=== PATIENT | female | born 1960 | race Caucasian/White ===

== ENCOUNTER 2017-02-26 15:27 | Inpatient (IN) | payer OTHER ==
[~2017-02-26] VITALS: Ht 152.4 cm; Wt 82.3 kg
[~2017-02-26 15:27] MED LIST: BENTYL10 MG PO; COUMADIN1 MG PO; DITROPAN XL10 MG PO; FENOFIBRATE200 M1; LEXAPRO10 MG PO; LIPITOR80 MG PO; LOFIBRA,TRIGLI160 MG PO; PERCOCET 5/31 TABLET PO; PRILOSEC20 MG PO; PRINIVIL20 MG PO; RISPERDAL0.5 MG PO; RISPERDAL1 MG PO; ZETIA10 MG PO
[2017-02-26 17:03] LABS: CHLORIDE 96 mEq/L (99-109); EOSINOPHIL (%) 0.4 % (0-5); EOSINOPHIL COUNT 0.1 K/uL (0-0.3); HEMATOCRIT 31.6 % (36.0-46.0); IMMATURE GRANULOCYTE (%) 0.6 % (0.0-0.7); IMMATURE GRANULOCYTE COUNT 0.1 K/uL; INSTRUMENT ABS NEUTROPHIL CT 11.7 K/uL; LYMPHOCYTE COUNT 1.3 K/uL (1.0-2.8); MCH 21.5 PG (29.0-34.0); MCV 69.5 FL (83-99); MONOCYTE (%) 7.4 % (3-12); MONOCYTE COUNT 1.1 K/uL (0-0.8); NEUTROPHIL (%) 82.2 % (45-76); NEUTROPHIL COUNT 11.7 K/uL (1.8-6.4); PLATELET COUNT 471 K/uL (156-360); POTASSIUM 4.4 mEq/L (3.7-5.4); RBC DIS.WIDTH-CV 14.7 % (11.8-14.6); RBC DIS.WIDTH-SD 36.8 % (39-53); RED BLOOD COUNT 4.55 M/uL (3.80-5.20); SODIUM 130 mEq/L (136-147); WHITE BLOOD COUNT 14.2 K/uL (4.1-10.2)
[2017-02-26 17:04] LABS: GLUCOSE 111 mg/dL (70-99)
[2017-02-26 17:06] LABS: ANION GAP 12 MEQ/L (2-14)
[2017-02-26 17:08] LABS: GFR ESTIMATE (CALCULATED) > 59 mL/min/
[2017-02-26 17:09] LABS: UREA NITROGEN (BUN) 14 mg/dL (9-23)
[2017-02-26 17:16] LABS: TROP-I INTERPRETATION NEGATIVE; TROPONIN-I 0.09 ng/mL (0.0-0.30)
[2017-02-26] MEDS ORDERED: LEXAPRO20 MG PO (23:26)
[2017-02-26] MEDS ORDERED: ZOCOR10 MG PO (23:28)
[2017-02-26] MEDS ORDERED: MELATONIN5 M1 PO (23:28)
[2017-02-27] VITALS (17 sets, daily range): BP systolic 68–111; BP diastolic 33–74
[2017-02-27 02:30] LABS: D-DIMER ELISA 1.82 mg/L FEU (< 0.57)
[2017-02-27 03:00] LABS: TROP-I INTERPRETATION POSITIVE; TROPONIN-I 1.27 ng/mL (0.0-0.30)
[2017-02-27 04:21] LABS: ADD MIUA? NO; BILIRUBIN NEGATIVE; BLOOD NEGATIVE; COLOR YELLOW ((YELLOW)); GLUCOSE (STRIP) NEGATIVE; KETONES NEGATIVE; LEUKOCYTES NEGATIVE; NITRITE NEGATIVE; PROTEIN (STRIP) NEGATIVE; UCUL ADDED? NO; UROBILINOGEN 0.2 MG/DL (0.2-1.0)
[2017-02-27 04:29] LABS: METH RESISTANT S AUREUS PCR NEGATIVE (NEGATIVE)
[2017-02-27 04:30] LABS: PROBE CHECK PASS; SPECIMEN PROCESSING CONTROL PASS
[2017-02-27 07:53] LABS: HEMATOCRIT 27.4 % (36.0-46.0); MCH 21.4 PG (29.0-34.0); MCHC 29.9 G/DL (30.0-36.0); MCV 71.4 FL (83-99); RBC DIS.WIDTH-SD 38.5 % (39-53); RED BLOOD COUNT 3.84 M/uL (3.80-5.20); WHITE BLOOD COUNT 9.8 K/uL (4.1-10.2)
[2017-02-27 08:01] LABS: CHLORIDE 105 mEq/L (99-109); POTASSIUM 4.5 mEq/L (3.7-5.4); SODIUM 135 mEq/L (136-147)
[2017-02-27 08:03] LABS: GLUCOSE 109 mg/dL (70-99)
[2017-02-27 08:04] LABS: ANION GAP 5 MEQ/L (2-14)
[2017-02-27 08:06] LABS: TROP-I INTERPRETATION POSITIVE; TROPONIN-I 0.96 ng/mL (0.0-0.30)
[2017-02-27 08:07] LABS: GFR ESTIMATE (CALCULATED) > 59 mL/min/
[2017-02-27 08:08] LABS: UREA NITROGEN (BUN) 9 mg/dL (9-23)
[2017-02-27 09:02] LABS: MEAN PLAT.VOLUME 8.8 uM^3 (9.5-12.4); PLAT.SUFFICIENCY INCREASED
[2017-02-27 09:06] LABS: PLATELET COUNT 328 K/uL (156-360)
[2017-02-27 14:05] LABS: HEMATOCRIT 28.3 % (36.0-46.0); MCV 72.9 FL (83-99)
[2017-02-28] VITALS (16 sets, daily range): BP systolic 87–134; BP diastolic 42–65
[2017-02-28 06:09] LABS: ALKALINE PHOSPHATASE 93 IU/L (3-129); ANION GAP 8 MEQ/L (2-14); CHLORIDE 105 MEQ/L (99-109); GFR ESTIMATE (CALCULATED) > 59 mL/min/; GLUCOSE 83 mg/dL (70-99); POTASSIUM 4.3 MEQ/L (3.7-5.4); SAMPLE HEMOLYSIS CHECK 0; SAMPLE ICTERIC CHECK 0; SAMPLE LIPEMIA CHECK 0; SODIUM 137 MEQ/L (136-147); TOTAL BILIRUBIN 0.4 MG/DL (0.0-1.0); UREA NITROGEN (BUN) 8 mg/dL (9-23)
[2017-02-28 06:11] LABS: HEMATOCRIT 31.6 % (36.0-46.0); MCH 21.5 PG (29.0-34.0); MCHC 29.1 G/DL (30.0-36.0); MCV 73.8 FL (83-99); RBC DIS.WIDTH-CV 15.1 % (11.8-14.6); RBC DIS.WIDTH-SD 40.1 % (39-53); RED BLOOD COUNT 4.28 M/uL (3.80-5.20); WHITE BLOOD COUNT 8.5 K/uL (4.1-10.2)
[2017-02-28 06:24] LABS: PLAT.SUFFICIENCY ADEQUATE; PLATELET COUNT ND K/uL (156-360)
[2017-02-28 06:25] LABS: MEAN PLAT.VOLUME ND uM^3 (9.5-12.4)
[2017-02-28 07:13] LABS: PLATELET CLUMPS PRESENT
[2017-03-01] VITALS (17 sets, daily range): BP systolic 86–122; BP diastolic 44–72
[2017-03-01 06:26] LABS: HEMATOCRIT 23.2 % (36.0-46.0); MCH 21.8 PG (29.0-34.0); MCHC 30.2 G/DL (30.0-36.0); MCV 72.3 FL (83-99); MEAN PLAT.VOLUME 9.2 uM^3 (9.5-12.4); PLATELET COUNT 267 K/uL (156-360); RBC DIS.WIDTH-SD 39.9 % (39-53); RED BLOOD COUNT 3.21 M/uL (3.80-5.20)
[2017-03-01 06:46] LABS: ANION GAP 5 MEQ/L (2-14); CHLORIDE 103 MEQ/L (99-109); POTASSIUM 3.9 MEQ/L (3.7-5.4); SAMPLE HEMOLYSIS CHECK 0; SAMPLE ICTERIC CHECK 0; SAMPLE LIPEMIA CHECK 0; SODIUM 136 MEQ/L (136-147)
[2017-03-01 06:52] LABS: GFR ESTIMATE (CALCULATED) > 59 mL/min/; GLUCOSE 97 mg/dL (70-99); UREA NITROGEN (BUN) 11 mg/dL (9-23)
[2017-03-01 09:48] LABS: FERRITIN 19 NG/ML (10-291)
[2017-03-01 10:37] LABS: IRON < 10.0 MCG/DL (35-150)
[2017-03-02] VITALS (9 sets, daily range): BP systolic 91–120; BP diastolic 50–57
[2017-03-02 06:15] LABS: ANION GAP 6 MEQ/L (2-14); CHLORIDE 104 MEQ/L (99-109); GFR ESTIMATE (CALCULATED) > 59 mL/min/; GLUCOSE 96 mg/dL (70-99); POTASSIUM 3.8 MEQ/L (3.7-5.4); SAMPLE HEMOLYSIS CHECK 0; SAMPLE ICTERIC CHECK 0; SAMPLE LIPEMIA CHECK 0; SODIUM 140 MEQ/L (136-147); UREA NITROGEN (BUN) 9 mg/dL (9-23)
[2017-03-02 06:26] LABS: MCH 23.7 PG (29.0-34.0); MCHC 31.9 G/DL (30.0-36.0); MCV 74.3 FL (83-99); MEAN PLAT.VOLUME 9.1 uM^3 (9.5-12.4); PLATELET COUNT 292 K/uL (156-360); RBC DIS.WIDTH-CV 16.9 % (11.8-14.6); RBC DIS.WIDTH-SD 45.1 % (39-53); WHITE BLOOD COUNT 5.1 K/uL (4.1-10.2)
[2017-03-02 06:32] LABS: RED BLOOD COUNT 4.17 M/uL (3.80-5.20)
[2017-03-03 04:11] VITALS: BP 117/64
[2017-03-03 06:47] LABS: HEMATOCRIT 32.5 % (36.0-46.0); MCH 23.6 PG (29.0-34.0); MCHC 31.7 G/DL (30.0-36.0); MCV 74.4 FL (83-99); MEAN PLAT.VOLUME 9.2 uM^3 (9.5-12.4); PLATELET COUNT 335 K/uL (156-360); RBC DIS.WIDTH-CV 17.9 % (11.8-14.6); RBC DIS.WIDTH-SD 47.9 % (39-53); RED BLOOD COUNT 4.37 M/uL (3.80-5.20)
[2017-03-03 07:06] LABS: ANION GAP 8 MEQ/L (2-14); CHLORIDE 104 MEQ/L (99-109); GFR ESTIMATE (CALCULATED) > 59 mL/min/; GLUCOSE 91 mg/dL (70-99); SAMPLE HEMOLYSIS CHECK 0; SAMPLE ICTERIC CHECK 0; SAMPLE LIPEMIA CHECK 0; SODIUM 141 MEQ/L (136-147); UREA NITROGEN (BUN) 7 mg/dL (9-23)
[2017-03-03 07:42] VITALS: BP 116/58
[2017-03-03 10:42] VITALS: BP 149/63
[2017-03-03 15:14] VITALS: BP 143/65
[2017-03-03 20:24] VITALS: BP 130/63
[2017-03-04 00:16] VITALS: BP 124/59
[2017-03-04 06:19] LABS: HEMATOCRIT 31.8 % (36.0-46.0); MCH 23.6 PG (29.0-34.0); MCHC 31.4 G/DL (30.0-36.0); MEAN PLAT.VOLUME 8.8 uM^3 (9.5-12.4); PLATELET COUNT 322 K/uL (156-360); RBC DIS.WIDTH-CV 18.9 % (11.8-14.6); RBC DIS.WIDTH-SD 49.7 % (39-53); RED BLOOD COUNT 4.24 M/uL (3.80-5.20); WHITE BLOOD COUNT 6.2 K/uL (4.1-10.2)
[2017-03-04 08:20] VITALS: BP 103/62
[2017-03-04] MEDS ORDERED: ENDOCET 5-3251 EACH PO (09:13)
[2017-03-04] MEDS ORDERED: FERROUS SULFAT325 MG PO (09:13)
[2017-03-04] MEDS ORDERED: LO-DOSE ASPIRIN81 M2 PO (09:13)
[2017-03-04] MEDS ORDERED: VITAMIN B122500 MC1 PO (09:13)
[2017-03-04] MEDS ORDERED: MILK OF MAGNESI10 ML PO (09:13)
[2017-03-04] MEDS ORDERED: DOCUSATE SODIU100 MG PO (09:13)
[2017-03-04] MEDS ORDERED: LOVENOX40 MG/0.4 SC (09:18)
[2017-03-04 12:28] VITALS: BP 134/63
[2017-03-04 16:06] VITALS: BP 120/71
[2017-03-05] VITALS: BP 121/59
[2017-03-05 04:05] VITALS: BP 133/61
[2017-03-05 08:09] VITALS: BP 114/61
[2017-03-05 12:07] VITALS: BP 113/57
[2017-03-05] MEDS ORDERED: ENDOCET 5-3251 EACH PO (12:51)
== END 2017-03-05 13:18 | DRG 189 ==
LOC: EME 15:27 → 4WEST 02-27 01:39 → EDOF 02-27 01:39 → 3EAST 02-27 01:39 → 4WEST 02-27 02:28 → 3EAST 03-02 10:15
PROVIDERS: Emergency Medicine; Hospitalist; Internal Medicine
PROC: 30233N1 Transfusion of Nonautologous Red Blood Cells into Peripheral Vein, Percutaneous Approach (ICD-10-PCS; principal; 2017-03-01)
DX: J96.01 Acute respiratory failure with hypoxia (principal); D62 Acute posthemorrhagic anemia; S72.451A Displaced supracondylar fracture without intracondylar extension of lower end of right femur, initial encounter for closed fracture; I21.4 Non-ST elevation (NSTEMI) myocardial infarction; E87.1 Hypo-osmolality and hyponatremia; M24.561 Contracture, right knee; I10 Essential (primary) hypertension; E78.5 Hyperlipidemia, unspecified; F70 Mild intellectual disabilities; F41.9 Anxiety disorder, unspecified; W06.XXXA Fall from bed, initial encounter; K21.9 Gastro-esophageal reflux disease without esophagitis; G81.90 Hemiplegia, unspecified affecting unspecified side; B58.9 Toxoplasmosis, unspecified; H54.0 Blindness, both eyes; G47.36 Sleep related hypoventilation in conditions classified elsewhere; G47.33 Obstructive sleep apnea (adult) (pediatric); J98.11 Atelectasis; Z79.899 Other long term (current) drug therapy; Z87.11 Personal history of peptic ulcer disease; Z91.19 Patient's noncompliance with other medical treatment and regimen
CPT/HCPCS: 71010; 71275; 73700; 80048; 80053; 81003; 82272; 82550; 82607; 82728; 82746; 83540; 83605; 84466; 84484; 85014; 85018; 85025; 85027; 85379; 86900; 86901; 86920; 87040; 87641; 93005; 93306; 94660; 94760; 94799; 99281; 99284; J1650; J1756; J2060; J2270; J3010; J3420; J7030; J7040; P9016